=== PATIENT | female | born 1970 | race Caucasian/White ===

== ENCOUNTER 2023-06-15 07:30 | Inpatient (IN) | payer OTHER ==
[~2023-06-15] VITALS: Ht 154.9 cm; Wt 63.5 kg
[2023-06-15 09:26] LABS: URINE APPEARANCE Clear; URINE BILIRRUBIN Negative (NEGATIVE); URINE BLOOD Negative; URINE COLOR Yellow; URINE GLUCOSE Negative (NEGATIVE); URINE LEUKOCYTE Negative; URINE NITRATE Negative; URINE PROTEIN Negative (NEGATIVE); URINE UROBILINOGEN 0.2 E.U./dl
[2023-06-15 09:30] LABS: URINE BACTERIA 700.3 uL (0.0-1933); URINE EPITHELIAL CELLS 18.2 uL (0.0-38.8); URINE WBC 7.2 uL (0.0-23.2)
[2023-06-15 09:31] LABS: HEMATOCRIT 37.4 % (36.0-45.00); HEMOGLOBIN 12.7 g/dL (12.0-15.00); MEAN CELL VOLUME 94.6 fL (80.00-100.00); MEAN CORPUSCULAR HEMOGLOBIN 32.2 pg (27.00-32.0); PLATELET COUNT 236 K/uL (150-450); RED BLOOD COUNT 3.95 M/uL (4.00-6.00); RED CELL DISTRIBUTION WIDTH 12.6 % (11.5-14.5)
[2023-06-15 09:58] LABS: ALBUMIN 3.7 gm/dL (3.4-5.0); BILIRUBIN TOTAL 0.6 mg/dL (0.3-1.2); CALCIUM 9.4 mg/dL (8.5-10.1); CREATININE SERUM 0.78 mg/dL (0.55-1.02); GFR 77.55; GLOBULINA 3.5 G/DL (2.4-3.5); POTASSIUM 4.07 mEq/L (3.5-5.1); TOTAL PROTEIN 7.2 gm/dL (6.4-8.2)
[2023-06-15 10:10] LABS: PARTIAL THROMBOPLASTIN TIME 30.1 SECONDS (22.0-34.0); PROTHROMBIN TIME 10.5 SECONDS (9.0-11.5)
[2023-06-15 10:11] LABS: URINE RBC 1.4 uL (0.0-20.8)
[2023-06-22] MEDS ORDERED: CEFOXITIN SODIUM 2,000 MG VIAL IV ONE (14:14)
[2023-06-22] MEDS ORDERED: CEFOXITIN SODIUM 2,000 MG VIAL IV SCH (14:15)
[2023-06-22] MEDS ORDERED: POVIDONE-IODINE 118 ML BOTT TOP ONE (16:00)
[2023-06-22] MEDS ORDERED: KETOROLAC TROMETHAMINE 60 MG VIAL IM STA (17:55)
[2023-06-22] MEDS ORDERED: PROMETHAZINE HCL 25 MG/ML AMPUL IM PRN (18:00)
[2023-06-22] MEDS ORDERED: MEPERIDINE HCL/PF 50 MG/ML VIAL IM PRN (18:00)
[2023-06-22] MEDS ORDERED: RINGERS SOLUTION,LACTATED 1,000 ML IV SCH (18:00)
[2023-06-22] MEDS ORDERED: KETOROLAC TROMETHAMINE 60 MG VIAL IM ONE (19:24)
[2023-06-23] LABS: HEMATOCRIT 33.6 % (36.0-45.00); HEMOGLOBIN 11.6 g/dL (12.0-15.00); MEAN CELL VOLUME 95.2 fL (80.00-100.00); MEAN CORPUSCULAR HEMOGLOBIN 32.8 pg (27.00-32.0); MEAN CORPUSCULAR HGB CONC 34.5 g/dl (32.0-36.0); PLATELET COUNT 213 K/uL (150-450); RED BLOOD COUNT 3.53 M/uL (4.00-6.00); RED CELL DISTRIBUTION WIDTH 12.2 % (11.5-14.5)
[2023-06-23] MEDS ORDERED: OxyCODONE HCL/APAP UD (PERCOCET) PO PRN
== END 2023-06-24 18:15 | disposition home or self-care (01) | DRG 743 ==
LOC: ADM 07:30 → OB/GYN 06-22 07:00 → EDSTATUS 06-22 07:30 → OB/GYN 06-22 07:30 → CIR.AMB 06-22 07:30 → O/R 06-22 10:50 → OB/GYN 06-22 18:33
PROVIDERS: ADMIT Obstetrics & Gynecology; ATTEND Obstetrics & Gynecology
PROC: 0UT70ZZ Resection of Bilateral Fallopian Tubes, Open Approach (ICD-10-PCS; 2023-06-22)
PROC: 0UT90ZZ Resection of Uterus, Open Approach (ICD-10-PCS; principal; 2023-06-22 07:00)
DX: D25.1 Intramural leiomyoma of uterus (principal); D25.2 Subserosal leiomyoma of uterus; D25.0 Submucous leiomyoma of uterus; N72 Inflammatory disease of cervix uteri; Z20.822 Contact with and (suspected) exposure to COVID-19